=== PATIENT | female | born 1965 | race African-American/Black ===

== ENCOUNTER 2020-01-28 10:47 | Emergency (ER) | payer MEDICARE, SELFPAY ==
[2020-01-28 10:56] VITALS: BP 138/93; PULSE 71; RESP 20; TEMP 36.9; O2SAT 100
--- NOTE | 2020-01-28 11:36 | ED.SKABFB ---
HPI - Skin/Abscess/Foreign Bdy General Chief complaint: Skin/Abscess/Foreign Body Stated complaint: poss bits on right hip Time Seen by Provider: 01/28/20 11:15 Source: patient and RN notes reviewed Mode of arrival: ambulatory Limitations: no limitations History of Present Illness HPI narrative: Patient presents today complaining of possible bedbug bite to the right waistline. She noted some possible bedbugs in her hotel room bed yesterday. Her and her mother, for treatment today with bites.She tried some Benadryl last night for itching, which did help slightly. MD complaint: insect bite/sting Related Data Allergies Allergy/AdvReac Type Severity Reaction Status Date / Time aripiprazole [From Abilify] Allergy Unknown Verified 01/28/20 11:14 bee venom protein (honey bee) Allergy Unknown Verified 01/28/20 11:14 cephalexin [From Keflex] Allergy Unknown Verified 01/28/20 11:14 hydroxyzine Allergy Unknown Verified 01/28/20 11:14 lamotrigine [From Lamictal] Allergy Unknown Verified 01/28/20 11:14 meperidine [From Demerol] Allergy Unknown Verified 01/28/20 11:14 quetiapine [From Seroquel] Allergy Unknown Verified 01/28/20 11:14 Tetracyclines Allergy Unknown Verified 01/28/20 11:14 Review of Systems Review of Systems: Narrative: CONSTITUTIONAL: Denies body aches, fever, chills, or sweats. EYES: Denies visual changes, redness, or discharge. ENT: Denies rhinorrhea, congestion, sore throat, or otalgia. CARDIOVASCULAR: Denies chest pain, palpitations, or edema. RESPIRATORY: Denies cough or dyspnea. GASTROINTESTINAL: Denies abdominal pain, nausea, vomiting, or diarrhea. GENITOURINARY: Denies dysuria or hematuria. SKIN: Denies rash, or wounds.+Insect bite MUSCULOSKELETAL: Denies back pain, joint pain, or myalgia. NEUROLOGIC: Denies headache, numbness, tingling, or weakness. PSYCH: Denies depression or anxiety. [facility] Past Medical History Medical History (Updated 01/28/20 @ 11:58 by Ria Zhang, [employer], BC) Pseudoseizures Comments At time of signature, I have reviewed and agree with nursing past medical, surgical, social and family history unless otherwise noted. Please see nursing chart for further information. There is no relevant family history pertinent to the presenting complaint Exam Narrative: Exam Narrative: GENERAL: Well-appearing, over-nourished, and in no acute distress. HEAD: Normocephalic, atraumatic. EYES: EOMI. No redness or drainage. ENT: Mucous membranes pink and moist. NECK: Normal AROM. CHEST: No respiratory distress. EXTREMITIES: Normal range of motion. No edema. SKIN: Warm, dry, no rash. Capillary refill normal. Normal skin turgor. 1 erythematous nodule to the right lateral waist, Consistent with insect bite. No signs of infection. NEURO: No focal deficits. Alert and oriented x3. Gait steady. PSYCH: Normal affect. No signs of depression or anxiety. Course Vital Signs Vital signs: Vital Signs Temperature 98.4 F 01/28/20 10:56 Pulse Rate 71 01/28/20 10:56 Respiratory Rate 20 01/28/20 10:56 Blood Pressure 138/93 H 01/28/20 10:56 Pulse Oximetry 100 01/28/20 10:56 Temperature 98.4 F 01/28/20 10:56 Pulse Rate 71 01/28/20 10:56 Respiratory Rate 20 01/28/20 10:56 Blood Pressure 138/93 H 01/28/20 10:56 Pulse Oximetry 100 01/28/20 10:56 Reviewed. Pt has been instructed to follow up with her PCP regarding her elevated blood pressure today. MDM - Skin/Abscess/Foreign Bdy Differential Diagnosis Differential diagnosis: Likely abscess of skin or subcutaneous tissue, cellulitis, eczema, insect bites, impetigo and contact dermatitis Critical Care Time Critical Care Time Critical Care Time: No Discharge Plan Discharge Clinical Impression: Bedbug bite Qualifiers: Encounter type: initial encounter Qualified Code(s): W57.XXXA - Bitten or stung by nonvenomous insect and other nonvenomous arthropods, initial encounter Patient Disposition: Home, Self-Care
== END 2020-01-28 11:43 | disposition home or self-care (01) ==
PROVIDERS: Emergency Provider Nurse Practitioner
DX: S30.861A Insect bite (nonvenomous) of abdominal wall, initial encounter (principal); W57.XXXA Bitten or stung by nonvenomous insect and other nonvenomous arthropods, initial encounter
CPT/HCPCS: 99211; G0463